=== PATIENT | male | born 2005 | race Two or more races ===

== ENCOUNTER 2025-02-25 01:21 | Emergency (ER) | payer SELFPAY ==
[~2025-02-25] VITALS: Ht 172.7 cm; Wt 72.0 kg
[2025-02-25 01:43] VITALS: RESP 16; O2SAT 99
[2025-02-25 01:54] VITALS: BP 154/80; PULSE 106; TEMP 98.5
== END 2025-02-25 02:00 ==
LOC: ER 01:23
DX: S00.81XA Abrasion of other part of head, initial encounter (principal); Z91.011 Allergy to milk products; X58.XXXA Exposure to other specified factors, initial encounter; Y93.89 Activity, other specified; Y92.89 Other specified places as the place of occurrence of the external cause; Y99.8 Other external cause status
CPT/HCPCS: 99283